=== PATIENT | female | born 1940 | race African-American/Black ===

== ENCOUNTER 2019-07-16 16:31 | Inpatient (IN) | payer MEDICARE, OTHER ==
[~2019-07-16] VITALS: Ht 149.9 cm; Wt 95.0 kg
[2019-07-16] MEDS ORDERED: SODIUM CHLORIDE 0.9% 1,000 ML IVB ONE (17:31)
[2019-07-16] MEDS ORDERED: SODIUM CHLORIDE 0.9% 250 ML IV ONE (17:45)
[2019-07-16] MEDS ORDERED: MORPHINE SULF INJ 2 MG/ML SYRINGE 1ML IV ONE (17:45)
[2019-07-16 18:05] LABS: Basophils # (auto) 0 10 ^3/uL (0-0.2); Basophils % (auto) 0.2 % (0.0-2.0); Eosinophils # (auto) 0 10 ^3/uL (0-0.8); Hematocrit 46.7 % (36.0-46.0); Hemoglobin 15.8 g/dL (12.2-16.2); Lymphocytes % (auto) 15.3 % (10.0-50.0); Mean Corpuscular Hemoglobin 32.4 pg (28.0-32.0); Mean Corpuscular Hgb Conc. 33.8 g/dL (32.0-36.0); Mean Corpuscular Volume 95.8 fL (80.0-100.0); Monocytes # (auto) 1.2 10 ^3/uL (0-1.3); Monocytes % (auto) 9.3 % (0.0-12.0); Neutrophils # (auto) 9.7 10 ^3/uL (1.6-8.6); Neutrophils % (auto) 75.2 % (37.0-80.0); Nucleated Red Blood Cells % 0.1 %; Platelet Count (auto) 346 10^3/uL (140-450); Red Blood Cells 4.87 10^6/uL (4.0-5.20); Red Cell Distribution Width 13.6 % (11.8-14.3)
[2019-07-16 18:17] LABS: Magnesium 2.8 mg/dL (1.6-2.6)
[2019-07-16 18:18] LABS: Albumin 4.4 g/dL (3.4-5.0); Anion Gap 10 (5-15); Blood Urea Nitrogen 60 mg/dL (7-18); Calcium 10.2 mg/dL (8.5-10.1); Carbon Dioxide 27 mmol/L (21-32); Chloride 99 mmol/L (98-107); Glucose 160 mg/dL (74-106); Potassium 4.6 mmol/L (3.5-5.1); Sodium 136 mmol/L (136-145)
[2019-07-16 18:24] LABS: Alanine Aminotransferase 20 U/L (13-56); Alkaline Phosphatase 110 U/L (45-117); Aspartate Aminotransferase 14 U/L (15-37); BUN/Creatinine Ratio 13.6; Bilirubin, Total 0.7 mg/dL (0.2-1.0); GFR African American 13 mL/min; GFR Non-African American 10 mL/min; Total Protein 9.3 g/dL (6.4-8.2)
[2019-07-16 18:32] LABS: Partial Thromboplastin Time 23.5 sec (23.64-32.05)
[2019-07-16] MEDS ORDERED: metroNIDAZOLE 500MG/100ML 100 ML IV ONE (18:45)
[2019-07-16] MEDS ORDERED: cefTRIAXone 1GM/50ML D5W 50 ML IV ONE (18:45)
[2019-07-16] MEDS ORDERED: ONDANSETRON HCL 4 MG/2 ML VIAL IV ONE (18:45)
[2019-07-16] MEDS ORDERED: LACTATED RINGER'S 2,000 ML IV ONE (19:15)
[2019-07-16] MEDS ORDERED: FUROSEMIDE 100 MG/10ML VIAL IV ONE (19:15)
[2019-07-16] MEDS ORDERED: NITROGLYCERIN 0.4 MG SL TAB SL PRN (19:30)
[2019-07-16] MEDS ORDERED: MORPHINE SULFATE 4 MG/ML SYR/VIAL IV PRN (19:30)
[2019-07-16] MEDS ORDERED: MORPHINE SULF INJ 2 MG/ML SYRINGE 1ML IV PRN (19:30)
[2019-07-16] MEDS ORDERED: DEXTROSE (50%) 50ML SYRG IV PRN (19:45)
[2019-07-16 20:59] LABS: Cholesterol 103 mg/dL (< 200); HDL Cholesterol 55 mg/dL (40-59); LDL Cholesterol 35 mg/dL (< 100); Triglycerides 191 mg/dL (< 150)
[2019-07-16] MEDS: LACTATED RINGER'S 1,000 ML IV SCH (21:36)
[2019-07-16 21:55] VITALS: BP 120/70
[2019-07-16 22:00] VITALS: BP 120/70
[2019-07-16] MEDS: InsuLIN REG 1unit/0.01ml Soln (100units/ml) SC SCH (22:00)
[2019-07-16] MEDS: ACCU-CHEK COMFORT CURVE STRIP VI SCH (22:00)
[2019-07-16] MEDS: metroNIDAZOLE 500MG/100ML 100 ML IV SCH (22:00)
[2019-07-17] VITALS (9 sets, daily range): BP systolic 101–132; BP diastolic 59–66
[2019-07-17 04:22] LABS: Basophils # (auto) 0 10 ^3/uL (0-0.2); Basophils % (auto) 0.3 % (0.0-2.0); Eosinophils # (auto) 0 10 ^3/uL (0-0.8); Eosinophils % (auto) 0.1 % (0.0-7.0); Hematocrit 39.6 % (36.0-46.0); Hemoglobin 13.4 g/dL (12.2-16.2); Lymphocytes % (auto) 19.9 % (10.0-50.0); Mean Corpuscular Hemoglobin 32.7 pg (28.0-32.0); Mean Corpuscular Hgb Conc. 33.8 g/dL (32.0-36.0); Mean Corpuscular Volume 96.6 fL (80.0-100.0); Monocytes # (auto) 1.4 10 ^3/uL (0-1.3); Monocytes % (auto) 13.4 % (0.0-12.0); Neutrophils # (auto) 6.7 10 ^3/uL (1.6-8.6); Neutrophils % (auto) 66.3 % (37.0-80.0); Platelet Count (auto) 255 10^3/uL (140-450); Red Cell Distribution Width 13.6 % (11.8-14.3); White Blood Cell 10.2 10^3/uL (4.4-10.8)
[2019-07-17 04:24] LABS: Albumin 3.3 g/dL (3.4-5.0); Calcium 8.3 mg/dL (8.5-10.1); Potassium 3.9 mmol/L (3.5-5.1)
[2019-07-17 04:30] LABS: BUN/Creatinine Ratio 16.6; Bilirubin, Total 0.5 mg/dL (0.2-1.0); Magnesium 2.5 mg/dL (1.6-2.6); Phosphorus 7.1 mg/dL (2.5-4.90); Total Protein 7.1 g/dL (6.4-8.2)
--- NOTE | 2019-07-17 05:08 | NUR ---
at 2250 pt was admitted from ER by Danelle ALMEIDAsurface water manager and transffered to icu bed and made comfortable.was sob
--- NOTE | 2019-07-17 05:10 | NUR ---
0000, pt was sleeping
--- NOTE | 2019-07-17 05:11 | NUR ---
0200 , repositioned and oral care done
--- NOTE | 2019-07-17 05:30 | NUR ---
0000 REPOSTIONED AND ORAL CARE DONE
--- NOTE | 2019-07-17 05:31 | NUR ---
AT 0200 PT IS ASLEEP
--- NOTE | 2019-07-17 05:32 | NUR ---
0400- IV INFUSING WELL AND iV SITE IS HENRY
[2019-07-17] MEDS: LACTATED RINGER'S 1,000 ML IV SCH ×2 (05:40→11:15)
[2019-07-17] MEDS: metroNIDAZOLE 500MG/100ML 100 ML IV SCH ×3 (05:41→22:31)
[2019-07-17] MEDS: hydrALAZINE HCL 20 MG/ML VL IV SCH ×4 (05:43→18:52)
[2019-07-17] MEDS ORDERED: FUROSEMIDE 100 MG/10ML VIAL IV SCH (06:00)
[2019-07-17] MEDS: InsuLIN REG 1unit/0.01ml Soln (100units/ml) SC SCH ×4 (06:26→22:31)
[2019-07-17] MEDS: ACCU-CHEK COMFORT CURVE STRIP VI SCH ×4 (06:27→22:31)
--- NOTE | 2019-07-17 07:50 | NUR ---
Opening Shift Note Assumed care of patient, awake and alert. No S/S of distress/SOB or pain. Instructed on POC and to call for assist PRN, will continue to monitor for changes Q1hr and PRN. Informed patient that still NPO, continuer IV, called For surgical consult. NG tube connected to suction, has bile content, patient no complaining of pain or N/V noted. Stated that hungry, had bowel sound.
[2019-07-17 08:42] LABS: Alcohol, Urine < 3.0 mg/dL (0-5); Amphetamine Screen, Urine NEGATIVE (NEGATIVE); Barbiturate Scree,Urine NEGATIVE (NEGATIVE); Benzodiazephine Screen, Urine NEGATIVE (NEGATIVE); Cannabinoid Screen, Urine NEGATIVE (NEGATIVE); Cocaine Screen, Urine NEGATIVE (NEGATIVE); Opiate Scree,Urine NEGATIVE (NEGATIVE); Phencyclidine Screen, Urine NEGATIVE (NEGATIVE)
[2019-07-17 08:43] LABS: Urine Bacteria FEW /hpf (None Seen); Urine Blood 2+ /uL (Negative); Urine Hyaline Cast MANY /lpf (0 - 2); Urine Mucus FEW (None Seen); Urine Specific Gravity 1.014 (1.001-1.035); Urine WBC 9 /hpf (0 - 5)
[2019-07-17] MEDS: cefTRIAXone 1GM/50ML D5W 50 ML IV SCH (09:22)
--- NOTE | 2019-07-17 09:32 | NUR ---
Received a call back from Dr. Aba MD will see patient later.
--- NOTE | 2019-07-17 11:30 | NUR ---
Mouth care provided. No complaining of N/V noted.
--- NOTE | 2019-07-17 13:10 | NUR ---
Dr. Rhodes at the bedside, seen and examined patient at this time. Plan of care discussed with patient, received new orders for Semiconductor Technician and hardware engineering manager consult, and transfer to ID. Patient made aware.
--- NOTE | 2019-07-17 13:52 | NUR ---
Gave a report to RN, patient transfer to 291B via the hospital bed, got NG content 450 ml with bile color out before transfer.
--- NOTE | 2019-07-17 13:57 | NUR ---
seen her at this time, received new orders, still pending for collect urine sample and received order for LIS, called west and left the note for RN who will taking care of her made aware.
--- NOTE | 2019-07-17 14:10 | NUR ---
Received a call back from Dr. Carmelo MD agreed to continue her eye drop.
--- NOTE | 2019-07-17 14:30 | NUR ---
Dr. Stephanie Fountain at bedside. Received new orders for an abdominal binder and LCS
--- NOTE | 2019-07-17 19:48 | NUR ---
RECEIVED PATIENT FROM DAY SHIFT RN. PATIENT RESTING IN BED. NO S/S OF DISTRESS NOTED. DENIED PAIN FOR NOW. NG TUBE TO LCS WITH YELLOW AND GREEN OUTPUT. ABD BINDER WITH ICE PACK IN PLACE. GUALLPA CATH IN PLACE DRAINING TO GRAVITY. POC INSTRUCTED AND ENCOURAGED PATIENT TO CALL FOR TOURISM RADIO PRESENTER IF NEEDED. BED IN LOWEST POSITION WITH SIDE RAILS UP X 2. CALL MG WITHIN REACH. ALARM ON. CONTINUE TO MONITOR FOR CHANGES Q1H AND PRN.
--- NOTE | 2019-07-17 21:43 | NUR ---
PATIENT'S SISTER CALLED, PASSWORD CONFIRMED. SISTER WOULD LIKE TO MAKE SURE PATIENT'S EYE DROPS, THERE ARE ORDERS OF EYE DROPS, WILL CARRY IT OUT LATER. SISTER VERBALIZED UNDERSTANDING. CONTINUE TO MONITOR.
[2019-07-17] MEDS: LATANOPROST 0.005 % OPTH(EYE) SOL 2.5ML EACHEYE SCH (22:30)
[2019-07-17] MEDS: BRIMONIDINE 0.2% OPTH Soln 5ml EACHEYE SCH (22:30)
[2019-07-17] MEDS: DORZOLAMIDE HCL 2% OPTH(EYE) SOL 10ML EACHEYE SCH (22:30)
--- NOTE | 2019-07-17 22:31 | NUR ---
ACCU-CHECK, BS 91. NO COVERAGE. CONTINUE TO MONITOR.
--- NOTE | 2019-07-18 01:30 | NUR ---
PATIENT SLEEPING. NO S/S OF DISTRESS NOTED. NG TUBE TO LCS, CONTINUE TO MONITOR.
[2019-07-18] MEDS: LACTATED RINGER'S 1,000 ML IV SCH ×4 (03:15→20:02)
[2019-07-18 05:00] VITALS: BP 123/57
[2019-07-18] MEDS: metroNIDAZOLE 500MG/100ML 100 ML IV SCH ×3 (06:06→23:09)
[2019-07-18] MEDS: hydrALAZINE HCL 20 MG/ML VL IV SCH ×4 (06:06→18:00)
[2019-07-18] MEDS: InsuLIN REG 1unit/0.01ml Soln (100units/ml) SC SCH ×4 (06:06→22:00)
[2019-07-18] MEDS: ACCU-CHEK COMFORT CURVE STRIP VI SCH ×4 (06:07→22:00)
--- NOTE | 2019-07-18 06:07 | NUR ---
ACCU-CHECK, BS 97. NO COVERAGE. CONTINUE TO MONITOR.
[2019-07-18] MEDS: cefTRIAXone 1GM/50ML D5W 50 ML IV SCH (09:27)
--- NOTE | 2019-07-18 09:54 | NUR ---
Received a call from Dr. Aba Brown with new orders as follow : patient need to be NPO and will get a surgery done today. Called OR spoke to Ale.
[2019-07-18 09:56] LABS: Anion Gap 8 (5-15); BUN/Creatinine Ratio 28.9; Blood Urea Nitrogen 70 mg/dL (7-18); Calcium 8.2 mg/dL (8.5-10.1); Carbon Dioxide 26 mmol/L (21-32); Chloride 110 mmol/L (98-107); GFR African American 25 mL/min; GFR Non-African American 21 mL/min; Glucose 103 mg/dL (74-106); Potassium 4.2 mmol/L (3.5-5.1); Sodium 144 mmol/L (136-145)
--- NOTE | 2019-07-18 11:25 | NUR ---
Informed patient's daughter(Lashonda) and patient's sister(Andrew) regarding patient is going to get a surgery today.
[2019-07-18] MEDS ORDERED: ceFAZolin 1GM/50ML 50 ML IV ONE (13:46)
[2019-07-18] MEDS ORDERED: fentaNYL CITRATE 5 ML ONE (15:02)
[2019-07-18] MEDS ORDERED: ROCURONIUM 10MG/ML 10ML VIAL IV ONE (15:02)
[2019-07-18] MEDS ORDERED: PROPOFOL 10 MG/ML 20 ML IV ONE (15:07)
[2019-07-18] MEDS ORDERED: SUCCINYLCHOLINE CHLORIDE 20 MG/ML 10ML VIAL IV ONE (15:07)
[2019-07-18] MEDS ORDERED: ceFAZolin 1GM VL ONE (16:25)
--- NOTE | 2019-07-18 17:20 | NUR ---
WOUND VAC CLARIFICATION ORDER FROM DR. LITTLEJOHN: Spoke with Dr. Littlejohn over the phone at extension [phone] for order for wound vac. Per Dr. Littlejohn apply wound vac to patient's abdominal wound today or tomorrow, Leave for three to four days, when patient is ready to go home, take it out and may go home without wound vac. No wound vac dressing change needed, no need for home wound vac.
[2019-07-18] MEDS ORDERED: ONDANSETRON HCL 4 MG/2 ML VIAL IV PRN (18:00)
[2019-07-18] MEDS ORDERED: ePHEDrine SULFATE 50 MG/ML AMP IV PRN (18:00)
[2019-07-18] MEDS ORDERED: hydrALAZINE HCL 20 MG/ML VL IV PRN (18:00)
[2019-07-18] MEDS ORDERED: MORPHINE SULFATE 4 MG/ML SYR/VIAL IV PRN (18:00)
--- NOTE | 2019-07-18 18:50 | NUR ---
Report given to Alexis ALMEIDA and hand all belongings in the room.
--- NOTE | 2019-07-18 19:30 | NUR ---
ANGELICA drain output: 25 mls of sanguinous drainage. Addendum: 07/29/19 at 0313 by SUZE BAUMAN RN Wrong date. Disregard
--- NOTE | 2019-07-18 19:55 | NUR ---
ARRIVED IN ROOM 294 AT 1920. WAS ALERT AND ORIENTED. DENIED PAIN. ABDOMINAL BINDER IN PLACE TO SUPPORT ABDOMINAL WOUND DRESSING AND MAKI DRAINAGE TUBE. AFEBRILE. VITAL SIGNS WITHIN NORMAL LIMIT.
--- NOTE | 2019-07-18 19:58 | NUR ---
ARRIVED ROOM 204 NOT 294.
[2019-07-18 20:00] VITALS: BP 120/61
[2019-07-18 20:57] VITALS: BP 120/91
[2019-07-18 22:00] VITALS: BP 138/66
[2019-07-18] MEDS: LATANOPROST 0.005 % OPTH(EYE) SOL 2.5ML EACHEYE SCH (22:00)
[2019-07-18] MEDS: BRIMONIDINE 0.2% OPTH Soln 5ml EACHEYE SCH (23:18)
[2019-07-18] MEDS: DORZOLAMIDE HCL 2% OPTH(EYE) SOL 10ML EACHEYE SCH (23:18)
[2019-07-19] MEDS: hydrALAZINE HCL 20 MG/ML VL IV SCH ×4 (00:04→16:58)
[2019-07-19] MEDS: ONDANSETRON HCL 4 MG/2 ML VIAL IV PRN (00:39)
[2019-07-19] MEDS: LACTATED RINGER'S 1,000 ML IV SCH ×2 (03:48→12:17)
[2019-07-19 05:00] VITALS: BP 125/59
[2019-07-19] MEDS: metroNIDAZOLE 500MG/100ML 100 ML IV SCH ×3 (05:44→22:14)
[2019-07-19 06:07] LABS: Basophils # (auto) 0 10 ^3/uL (0-0.2); Basophils % (auto) 0.3 % (0.0-2.0); Eosinophils # (auto) 0 10 ^3/uL (0-0.8); Eosinophils % (auto) 0.5 % (0.0-7.0); Hematocrit 25.6 % (36.0-46.0); Hemoglobin 8.4 g/dL (12.2-16.2); Lymphocytes # (auto) 0.6 10 ^3/uL (0.4-5.4); Lymphocytes % (auto) 12.6 % (10.0-50.0); Mean Corpuscular Hemoglobin 33.1 pg (28.0-32.0); Mean Corpuscular Volume 100.5 fL (80.0-100.0); Monocytes # (auto) 0.5 10 ^3/uL (0-1.3); Monocytes % (auto) 10.1 % (0.0-12.0); Neutrophils # (auto) 3.5 10 ^3/uL (1.6-8.6); Neutrophils % (auto) 76.5 % (37.0-80.0); Platelet Count (auto) 103 10^3/uL (140-450); Red Blood Cells 2.54 10^6/uL (4.0-5.20); Red Cell Distribution Width 13.5 % (11.8-14.3); White Blood Cell 4.6 10^3/uL (4.4-10.8)
--- NOTE | 2019-07-19 06:10 | NUR ---
Respiratory note: POX CHECK, PATIENT WAS NOT ON CPAP. PT WAS ASLEEP, NO RESP DISTRESS NOTED. HR 95, RR 16, 98% ON 2L N/C.
[2019-07-19 06:23] LABS: Calcium 7.5 mg/dL (8.5-10.1); Potassium 4.7 mmol/L (3.5-5.1)
[2019-07-19 06:25] LABS: BUN/Creatinine Ratio 37.2
[2019-07-19] MEDS: InsuLIN REG 1unit/0.01ml Soln (100units/ml) SC SCH ×3 (06:27→16:48)
[2019-07-19] MEDS: ACCU-CHEK COMFORT CURVE STRIP VI SCH ×3 (06:27→16:38)
--- NOTE | 2019-07-19 07:17 | NUR ---
0600 PATIENT GIVEN PARTIAL BEDBATH. TURNED AND REPOSITIONED. FEELS MORE CONFORTABLE.
--- NOTE | 2019-07-19 07:30 | NUR ---
Received patient with right antecubital area IV site leaking. Patient is hard stick.
--- NOTE | 2019-07-19 07:46 | NUR ---
80 MLS BLOODY EMPTIED FROM THE KRUNAL DRAINAGE SYSTEM.
--- NOTE | 2019-07-19 07:50 | NUR ---
Patient on NGT draining dark, brown liquid at 100 ml noted on the suction canister. NGT on low intermittent suction. Patient on NPO. On Torres catheter, draining light parul urine. One ANGELICA bulb drain on the right abdominal area. On abdominal binder.
--- NOTE | 2019-07-19 08:00 | NUR ---
SCD machine provided.
--- NOTE | 2019-07-19 08:10 | NUR ---
Charge Nurse Doc at bedside for IV insertion.
--- NOTE | 2019-07-19 08:15 | NUR ---
Charge Nurse Doc inserted an IV line on the right wrist, 22 gauge. Patient needs a midline.
--- NOTE | 2019-07-19 08:15 | NUR ---
Traci Franco at bedside.
--- NOTE | 2019-07-19 08:30 | NUR ---
Paged House Sup Cheryl.
--- NOTE | 2019-07-19 08:36 | NUR ---
Lenard Luna called back. Cheryl made aware patient needs a midline, patient is hard stick. Cheryl to page PICC Line Nurse.
[2019-07-19 09:00] VITALS: BP 134/60
[2019-07-19] MEDS: cefTRIAXone 1GM/50ML D5W 50 ML IV SCH (10:28)
--- NOTE | 2019-07-19 10:40 | NUR ---
electric melt operator Fany at bedside to place Wound Vac.
--- NOTE | 2019-07-19 10:48 | NUR ---
WOUND CARE NOTE: Wound care in to apply wound vac to patient's abdominal incision per Dr. Troncoso's order. Patient is 78 y/o female with admitting diagnosis of Sepsis, Strangulated Hernia with Necrosis of Bowel. Patient is resting bed in Rm. 204A. Patient is awake, alert and able to verbalize needs. She's medicated for pain by her bedside nurse prior wound vac application. Patient given education regarding NPWT, verbalized understanding. She's is able to assist in turning and repositioning and her Sincere score is 21. Removed patient's Rt abdominal wound dressing. Patient is one day s/p Ventral Hernia Repair by Dr. Troncoso. Patient's Rt abdominal incision measuring 18 cm is well approximated with intact rakesh. Wound is mild red, has pink surrounding skin, minimal serosanguineous drainage noted in ANGELICA drain. Cleansed patient's Rt abdominal incision with NS,patted dry with sterile gauze, applied skin protectant to periwound. Applied transparent drape to periwound. Applied one piece black granufoam dressing along incision. Secured foam dressing with transparent drape, attached trac pad and connected tubings. Run Ulta vac at 125 mmHg continuos as MD ordered. Good suction and seal noted, no leak detected. Photographs of patient's wound are taken for reference. Patient tolerated well. ELLE Hopson at bedside. RECOMMENDATIONS: Continuation of all wound care orders prescribed by MD, continue with skin/wound plan of care, continue monitoring by wound care while patient is hospitalized. Addendum: 07/19/19 at 1429 by Fany Mcconnell RN Amended: Links added.
--- NOTE | 2019-07-19 11:00 | NUR ---
Traci Franco made aware patient asked for stool softener. MD ordered to consult with Yannick Mayberry regarding stool softener. Patient had surgery yesterday. Informed the patient.
--- NOTE | 2019-07-19 12:30 | NUR ---
BP = 141/69, Heart rate = 97. Apresoline Inj 10 mg given as ordered.
[2019-07-19 13:00] VITALS: BP 141/69
--- NOTE | 2019-07-19 13:05 | NUR ---
Yannick Mayberry at bedside (for follow up post op). MD ordered Midline insertion, PPN as per Pharmacy at 75 ml/hr, D5 1/2 NS/KCL 20 Meq at 50 ml/hour; keep patient on NGT on low intermittent suction, keep NPO. Dr. Troncoso explained to patient no stool softener for now. PICC Line ELLE Gonsalez came over to insert midline today.
[2019-07-19] MEDS ORDERED: D5W/SOD CHL 0.45%/KCL 20MEQ 1,000 ML IV SCH (13:15)
[2019-07-19] MEDS ORDERED: PPN PER PHARMACY 0 ML IV SCH (13:15)
--- NOTE | 2019-07-19 13:40 | NUR ---
Pharmacist called that patient's K = 4.7. D5 1/2 NS KCL 20 Meq not recommended. Will inform .
--- NOTE | 2019-07-19 13:50 | NUR ---
Traci Huertas has seen the patient for GI Consult. No GI intervention recommended at this time.
--- NOTE | 2019-07-19 14:10 | NUR ---
MIDLINE placement Patient/Patient significant other educated on need for MIDLINE placement. All risks and benefits explained and all questions and concerns addressed prior to procedure. Noted past medical history and allergies with no contraindications. INR and Plt counts within acceptable range. 4 fr MIDLINE inserted via right basilic vein using [employer] US and Tip Location System. Sterile technique with maximum barrier precautions utilized. Blood return obtained from the single lumen and it flushed easily with NS using proper technique. MIDLINE secured with Stat-lock; biodisc and occlusive dressing applied. Less than 5ml EBL noted during procedure. MIDLINE 20cm internally w/ 0cm externally. *Baseline Arm Circumference 37cm at 1cm above insertion site. MIDLINE lot # [id number]. Note:
--- NOTE | 2019-07-19 14:17 | NUR ---
OK to use MIDLINE Thi Araya notified now OK to use MIDLINE.
[2019-07-19 14:22] LABS: Magnesium 1.7 mg/dL (1.6-2.6); Phosphorus 2.8 mg/dL (2.5-4.90); Pre Albumin 14.4 mg/dL (20.0-40.0)
--- NOTE | 2019-07-19 14:30 | NUR ---
About 75 ml of serosanguineous fluid drained from the ANGELICA bulb.
--- NOTE | 2019-07-19 14:40 | NUR ---
Called Yannick Mayberry Informed MD the K = 4.7, Pharmacist recommends the D5 with no Potassium. Dr. Troncoso ordered D5W 1/2 NS at 50 ml/hr.
[2019-07-19] MEDS: D5W/SOD CHL 0.45% 1,000 ML IV SCH (15:18)
[2019-07-19] MEDS ORDERED: MAGNESIUM SULFATE 1GM/100ML 100 ML IV ONE (15:45)
--- NOTE | 2019-07-19 16:58 | NUR ---
BP = 146/72. Apresoline Inj 10 mg given as ordered.
[2019-07-19 17:00] VITALS: BP 146/72
--- NOTE | 2019-07-19 19:40 | NUR ---
Opening Shift Note Assumed care of patient, awake and alert. Fall and safety precautions in place. Call light within reach and able to use. No S/S of distress/SOB or pain. Patient has surgical drain to right abdomen and NG tube to LIS. Instructed on POC and to call for assist PRN, patient verbalized understanding and in agreement. Will continue to monitor for changes Q1hr and PRN.
--- NOTE | 2019-07-19 19:54 | NUR ---
PAGED ON-CALL HOSP PAGED ON-CALL HOSP TO CLARIFY BLOOD SUGAR CHECK ORDERS FOR PATIENT STARTED ON PPN TODAY. ADDITIONALLY LATEST TEMPERATURE WAS 99.2 ORAL F. AWAITING CALL BACK. WILL CONTINUE TO MONITOR.
[2019-07-19] MEDS ORDERED: PPN PER PHARMACY IV NR ×5 (20:00)
[2019-07-19] MEDS ORDERED: ACETAMINOPHEN 650 MG RECT SUPP PR PRN (21:15)
[2019-07-19 21:50] VITALS: BP 150/63
[2019-07-19] MEDS: LATANOPROST 0.005 % OPTH(EYE) SOL 2.5ML EACHEYE SCH (22:00)
--- NOTE | 2019-07-19 22:10 | NUR ---
Respiratory note: PT STATED SHE WAS NOT GOING TO WEAR CPAP BECAUSE THE PRESSURE DIDN'T FEEL GOOD. NO SOB OR DISTRESS NOTED. HR 99, RR 16, POX 97% ON 3L NC, BS ARE CLEAR.
[2019-07-19] MEDS: DORZOLAMIDE HCL 2% OPTH(EYE) SOL 10ML EACHEYE SCH (22:14)
[2019-07-19] MEDS: BRIMONIDINE 0.2% OPTH Soln 5ml EACHEYE SCH (22:14)
[2019-07-20] MEDS ORDERED: DEXTROSE (50%) 50ML SYRG IV SCH
[2019-07-20] MEDS: hydrALAZINE HCL 20 MG/ML VL IV SCH ×4 (00:36→17:52)
[2019-07-20] MEDS: ACCU-CHEK COMFORT CURVE STRIP VI SCH ×4 (00:45→17:08)
[2019-07-20] MEDS: InsuLIN REG 1unit/0.01ml Soln (100units/ml) SC SCH ×4 (00:47→17:08)
[2019-07-20 05:00] VITALS: BP 129/58
[2019-07-20] MEDS: metroNIDAZOLE 500MG/100ML 100 ML IV SCH ×3 (05:47→21:09)
--- NOTE | 2019-07-20 06:16 | NUR ---
PT ASSESSED FOR CPAP USAGE. CPAP UNIT AT BEDSIDE. PT IS ON 3LNC, SPO2 98%, HR 97, RR 18.
[2019-07-20 06:34] LABS: Basophils # (auto) 0 10 ^3/uL (0-0.2); Basophils % (auto) 0.3 % (0.0-2.0); Eosinophils # (auto) 0.1 10 ^3/uL (0-0.8); Eosinophils % (auto) 1.8 % (0.0-7.0); Hematocrit 37.1 % (36.0-46.0); Hemoglobin 12.4 g/dL (12.2-16.2); Mean Corpuscular Hemoglobin 32.8 pg (28.0-32.0); Mean Corpuscular Hgb Conc. 33.5 g/dL (32.0-36.0); Monocytes # (auto) 0.8 10 ^3/uL (0-1.3); Monocytes % (auto) 10.3 % (0.0-12.0); Neutrophils # (auto) 5.8 10 ^3/uL (1.6-8.6); Neutrophils % (auto) 74.6 % (37.0-80.0); Nucleated Red Blood Cells % 0.1 %; Platelet Count (auto) 202 10^3/uL (140-450); Red Blood Cells 3.79 10^6/uL (4.0-5.20); Red Cell Distribution Width 13.7 % (11.8-14.3); White Blood Cell 7.8 10^3/uL (4.4-10.8)
[2019-07-20 06:53] LABS: Albumin 2.5 g/dL (3.4-5.0); Calcium 8.2 mg/dL (8.5-10.1); Magnesium 2.5 mg/dL (1.6-2.6); Potassium 4.2 mmol/L (3.5-5.1)
--- NOTE | 2019-07-20 06:54 | NUR ---
NG and Drain Output for LIS NG tube is 400ml clear dark green fluid for this shift. Output for Duarte surgical drain 100ml of sanguinous fluid for this shift. Patient resting in bed with no s/s of distress.
[2019-07-20 06:57] LABS: BUN/Creatinine Ratio 33.3; Bilirubin, Total 0.4 mg/dL (0.2-1.0); Phosphorus 1.4 mg/dL (2.5-4.90); Total Protein 6.1 g/dL (6.4-8.2)
--- NOTE | 2019-07-20 07:46 | NUR ---
PT ASSESSED FOR PRN HHN TX. PT IS ON 3LNC, SPO2 98%, HR 97, RR 18. NO S/S OF RESPIRATORY DISTRESS. PT AWARE TO HAVE RT PAGED IF TX NEEDED. WILL CONTINUE TO MONITOR. Addendum: 07/20/19 at 0747 by Erin Velasquez RT ERROR. WRONG PT.
--- NOTE | 2019-07-20 07:55 | NUR ---
Patient asleep, snoring, on O2 at 3 LPM, no acute distress noted. On NGT at low intermittent suction. About 600 ml of dark brown fluid noted in the suction canister.
--- NOTE | 2019-07-20 08:40 | NUR ---
Traci Franco at bedside. Dr. Rhodes ordered to ask when Yannick Mayberry comes, if patient needs to have Phosphorous IV.
--- NOTE | 2019-07-20 08:46 | NUR ---
WOUND CARE NOTE: Wound care in for daily monitoring of wound vac functioning. Patient continue resting in bed in Rm. 204A. Patient's eyes are closed, respirations even and unlabored. Patient's abdominal wound vac dressing is C/D/I and attached to Ulta Vac, functioning well at 125mm Hg continuous as MD ordered . Good seal noted, no leak detected. No drainage noted in Vacutainer. Will continue to monitor
[2019-07-20 09:00] VITALS: BP 116/65
[2019-07-20] MEDS: cefTRIAXone 1GM/50ML D5W 50 ML IV SCH (09:38)
[2019-07-20] MEDS: D5W/SOD CHL 0.45% 1,000 ML IV SCH (09:40)
[2019-07-20] MEDS ORDERED: POTASSIUM PHOSPHATE 22 MEQ in SODIUM CHL 0.9% 100 ML IV ONE (12:00)
--- NOTE | 2019-07-20 12:00 | NUR ---
Waiting for Pharmacy to deliver the Potassium Phosphate IV.
--- NOTE | 2019-07-20 12:17 | NUR ---
BP = 152/72. Apresoline Inj 10 mg given as ordered/
[2019-07-20 13:00] VITALS: BP 152/72
--- NOTE | 2019-07-20 14:10 | NUR ---
Nutrition Assessment Notes Please refer to link for full assessment notes. Est Energy needs: 5087-8749 kcals (12-15 kcal/kgBW) Est Protein needs: 58-69 gms/day (1.0-1.1 gm/kgAdjBW) Will continue to monitor and reassess prn. Addendum: 07/20/19 at [address] Amended: Links added.
--- NOTE | 2019-07-20 14:12 | NUR ---
Informed Pharmacy that Potassium Phosphate has not been received yet.
--- NOTE | 2019-07-20 17:08 | NUR ---
Yannick Mayberry called asking how the patient is doing. MD made aware patient on PPN via midline as he ordered. Dr. Troncoso ordered keep patient NPO, keep NGT on low intermittent suction. MD to come over to see the patient tomorrow.
[2019-07-20 17:15] VITALS: BP 141/68
--- NOTE | 2019-07-20 19:30 | NUR ---
Opening Shift Note Assumed care of patient, awake and alert. Fall and safety precautions in place. Call light within reach and able to use. No S/S of distress/SOB or pain. Wound vac to right abdomen continuous at ordered settings, sealed and intact, no drainage. Patient has surgical drain to right abdomen and NG tube to LIS with dark green fluid. PPN running at 42ml/hr via right upper arm midline. Instructed on POC and to call for assist PRN, patient verbalized understanding and in agreement. Will continue to monitor for changes Q1hr and PRN.
[2019-07-20] MEDS ORDERED: PPN PER PHARMACY IV NR ×7 (20:00)
--- NOTE | 2019-07-20 20:30 | NUR ---
New nutrition bag held with new tubing (see emar for documentation). Will continue to monitor.
[2019-07-20] MEDS: BRIMONIDINE 0.2% OPTH Soln 5ml EACHEYE SCH (21:08)
[2019-07-20] MEDS: DORZOLAMIDE HCL 2% OPTH(EYE) SOL 10ML EACHEYE SCH (21:08)
[2019-07-20] MEDS: LATANOPROST 0.005 % OPTH(EYE) SOL 2.5ML EACHEYE SCH (21:08)
[2019-07-20 22:00] VITALS: BP 157/65
[2019-07-20] MEDS: ONDANSETRON HCL 4 MG/2 ML VIAL IV PRN (22:12)
[2019-07-21] MEDS: ACCU-CHEK COMFORT CURVE STRIP VI SCH ×5 (00:15→23:20)
[2019-07-21] MEDS: hydrALAZINE HCL 20 MG/ML VL IV SCH ×5 (00:16→23:20)
[2019-07-21] MEDS: InsuLIN REG 1unit/0.01ml Soln (100units/ml) SC SCH ×5 (00:17→23:23)
--- NOTE | 2019-07-21 00:45 | NUR ---
NG Canister Changed Canister full with dark green fluid. Changed at this time and returned to prior settings: LIS. Will continue to monitor.
[2019-07-21] MEDS: ONDANSETRON HCL 4 MG/2 ML VIAL IV PRN (04:48)
[2019-07-21] MEDS: metroNIDAZOLE 500MG/100ML 100 ML IV SCH ×3 (05:10→21:29)
[2019-07-21] MEDS: D5W/SOD CHL 0.45% 1,000 ML IV SCH (05:51)
[2019-07-21 05:59] VITALS: BP 144/73
--- NOTE | 2019-07-21 06:29 | NUR ---
Total Shift Outputs Wound vac: 0ml NG LIS Canister: 600ml clear dark green fluid Duarte Surgical Drain: 110ml sanguinous fluid Will continue to monitor.
[2019-07-21 06:52] LABS: Potassium 3.9 mmol/L (3.5-5.1)
[2019-07-21 07:05] LABS: Albumin 2.5 g/dL (3.4-5.0); BUN/Creatinine Ratio 32.5; Bilirubin, Total 0.3 mg/dL (0.2-1.0); Magnesium 2.2 mg/dL (1.6-2.6); Phosphorus 1.5 mg/dL (2.5-4.90); Total Protein 6.3 g/dL (6.4-8.2)
--- NOTE | 2019-07-21 07:20 | NUR ---
OPENING NOTES ASSUMED CARE OF PT. ALERT AND ORIENTED. NO S/S OF SOB/DISTRESS NOTED. NGT TO RIGHT NARES, PATENT AND DRAINING DARK GREENISH BROWN COLOR TO LIS. BED SET TO LOWEST POSITION/LOCKED, BEDSIDE RAILS UP X2, BED ALARM ON, CALL LIGHT WITHIN REACH, INSTRUCTED PT TO CALL FOR ASSISTANCE. UPDATED ON POC. PT VERBALIZED UNDERSTANDING. WILL CONTINUE TO MONITOR Q1HR AND PRN.
--- NOTE | 2019-07-21 07:30 | NUR ---
DRAIN KRUNAL DRAIN 30ML OF SANGUINOUS FLUID.
--- NOTE | 2019-07-21 08:18 | NUR ---
WOUND CARE NOTE: Wound care in for daily monitoring of wound vac functioning. Patient continue resting in bed in Rm. 204A. Patient is awake, alert and oriented. Patient's abdominal wound vac dressing is C/D/I and attached to Ulta Vac, functioning well at 125mm Hg continuous as MD ordered . Good seal noted, no leak detected. Will continue to monitor
[2019-07-21 09:00] VITALS: BP 150/76
[2019-07-21] MEDS ORDERED: POTASSIUM PHOSPHATE 22 MEQ in SODIUM CHL 0.9% 100 ML IV ONE (09:45)
[2019-07-21] MEDS: cefTRIAXone 1GM/50ML D5W 50 ML IV SCH (10:29)
[2019-07-21] MEDS: D5W 5% 1,000 ML IV SCH (11:23)
[2019-07-21 13:00] VITALS: BP 164/86
[2019-07-21 17:00] VITALS: BP 160/78
--- NOTE | 2019-07-21 18:00 | NUR ---
NGT 1300ML OF GREENISH BROWN FLUID DRAINED.
--- NOTE | 2019-07-21 19:35 | NUR ---
Opening Shift Note Assumed care of patient, awake and alert. No S/S of distress/SOB or pain. Instructed on POC and to call for assist PRN, patient verbalized understanding and in agreement. Fall and safety precautions are in place. Will continue to monitor for changes Q1hr and PRN.
[2019-07-21] MEDS ORDERED: PPN PER PHARMACY IV NR ×8 (20:00)
[2019-07-21] MEDS: BRIMONIDINE 0.2% OPTH Soln 5ml EACHEYE SCH (21:28)
[2019-07-21] MEDS: DORZOLAMIDE HCL 2% OPTH(EYE) SOL 10ML EACHEYE SCH (21:28)
[2019-07-21] MEDS: LATANOPROST 0.005 % OPTH(EYE) SOL 2.5ML EACHEYE SCH (21:29)
--- NOTE | 2019-07-21 22:00 | NUR ---
Temp Patient's oral temp 99.3. Cooling measures initiated, patient verbalized understanding and in agreement. Will continue to monitor patient.
--- NOTE | 2019-07-21 22:00 | NUR ---
Eye drops not available In house pharmacy is closed. Will notify day shift RN of eye drops not available (see emar). Will continue to monitor.
[2019-07-21 22:08] VITALS: BP 144/84
--- NOTE | 2019-07-21 23:00 | NUR ---
Temp Recheck Patient's oral temp rechecked: 98.2 F. Will continue to monitor.
--- NOTE | 2019-07-21 23:00 | NUR ---
Bath / Linen Change Patient offered bed bath / linen change, patient verbalized understanding and in agreement. Patient given full bed bath and performed full linen change. Patient tolerated well. Will continue to monitor.
--- NOTE | 2019-07-22 | NUR ---
Patient c/o dry nose Patient states that her nose feels dry. Communicated with RT. Patient given humidification for oxygen. Will continue to monitor.
--- NOTE | 2019-07-22 00:40 | NUR ---
Nausea Patient states she feels nauseous. Patient's head of bed raised, LIS suction checked (clear green fluid draining well) from NG that if free of kinks, and towel/emesis bag provided. Patient offered PRN medication for N/V, patient in agreement for administration (see emar for administration). Will continue to monitor.
[2019-07-22] MEDS: ONDANSETRON HCL 4 MG/2 ML VIAL IV PRN ×2 (00:47→16:55)
--- NOTE | 2019-07-22 01:15 | NUR ---
Nausea Resolution Patient states she feels better and no longer is nauseated. Will continue to monitor.
[2019-07-22] MEDS ORDERED: FUROSEMIDE 20 MG/2 ML VIAL ONE (04:19)
--- NOTE | 2019-07-22 04:20 | NUR ---
Regarding Non-Admin STK Med Other RN pulled override med under wrong patient (see orders). Med was wasted by RN whom pulled med. Med was not given to this patient.
[2019-07-22] MEDS: metroNIDAZOLE 500MG/100ML 100 ML IV SCH ×3 (05:51→21:56)
[2019-07-22] MEDS: ACCU-CHEK COMFORT CURVE STRIP VI SCH ×4 (05:51→23:51)
[2019-07-22] MEDS: hydrALAZINE HCL 20 MG/ML VL IV SCH ×3 (05:51→17:43)
[2019-07-22] MEDS: D5W 5% 1,000 ML IV SCH (05:52)
[2019-07-22 05:54] LABS: Basophils # (auto) 0.1 10 ^3/uL (0-0.2); Basophils % (auto) 0.6 % (0.0-2.0); Eosinophils # (auto) 0.2 10 ^3/uL (0-0.8); Hematocrit 37.6 % (36.0-46.0); Hemoglobin 12.6 g/dL (12.2-16.2); Lymphocytes # (auto) 1.3 10 ^3/uL (0.4-5.4); Lymphocytes % (auto) 13.9 % (10.0-50.0); Mean Corpuscular Hemoglobin 32.8 pg (28.0-32.0); Mean Corpuscular Hgb Conc. 33.5 g/dL (32.0-36.0); Monocytes # (auto) 0.8 10 ^3/uL (0-1.3); Monocytes % (auto) 9.2 % (0.0-12.0); Neutrophils # (auto) 6.8 10 ^3/uL (1.6-8.6); Neutrophils % (auto) 74.3 % (37.0-80.0); Nucleated Red Blood Cells % 0.1 %; Platelet Count (auto) 202 10^3/uL (140-450); Red Blood Cells 3.84 10^6/uL (4.0-5.20); Red Cell Distribution Width 13.3 % (11.8-14.3); White Blood Cell 9.1 10^3/uL (4.4-10.8)
[2019-07-22] MEDS: InsuLIN REG 1unit/0.01ml Soln (100units/ml) SC SCH ×4 (05:54→23:52)
[2019-07-22 06:11] LABS: Potassium 3.8 mmol/L (3.5-5.1)
[2019-07-22 06:19] LABS: Albumin 2.6 g/dL (3.4-5.0); BUN/Creatinine Ratio 31.5; Bilirubin, Total 0.3 mg/dL (0.2-1.0); Calcium 8.3 mg/dL (8.5-10.1); Magnesium 2.3 mg/dL (1.6-2.6); Phosphorus 2.8 mg/dL (2.5-4.90); Total Protein 6.4 g/dL (6.4-8.2)
--- NOTE | 2019-07-22 07:20 | NUR ---
OPENING NOTES ASSUMED CARE OF PT. ALERT AND ORIENTED. NO S/S OF SOB/DISTRESS NOTED. NGT TO LEFT NARES, PATENT AND DRAINING DARK GREENISH BROWN COLOR TO LIS. BED SET TO LOWEST POSITION/LOCKED, BEDSIDE RAILS UP X2, BED ALARM ON, CALL LIGHT WITHIN REACH, INSTRUCTED PT TO CALL FOR ASSISTANCE. UPDATED ON POC. PT VERBALIZED UNDERSTANDING. WILL CONTINUE TO MONITOR Q1HR AND PRN.
[2019-07-22 09:00] VITALS: BP 151/64
[2019-07-22] MEDS: cefTRIAXone 1GM/50ML D5W 50 ML IV SCH (09:40)
--- NOTE | 2019-07-22 09:55 | NUR ---
WOUND CARE NOTE: IN TO CHECK STATUS OF WOUND VAC DRESSING TO ABD INCISION. PATIENT'S VAC IS SET AT 125 MM/HG CONTINUOUS. GOOD SUCTION, NO LEAKS DETECTED. WOUND CARE TEAM WILL CONTINUE TO MONITOR.
[2019-07-22 13:00] VITALS: BP 138/77
--- NOTE | 2019-07-22 14:53 | NUR ---
Nutrition Follow-up Wt.: 96.7 kg Pt sleeping with no family by bedside. per records pt with hernia and s/p sx on 07/17. pt is currently NPO with PN support @ 63 ml/hr providing 956 kcals and 70 gm proteins 676 kcals NCP. pt with inadequate PN support as it meets 65-82% IBW and 100-120% proteins. Est Energy needs: 6553-1251 kcals (12-15 kcal/kgBW), Est Protein needs: 58-69 gms/day (1.0-1.1 gm/kgAdjBW) Labs: CA 8.3 L, ALB 2.6 L, GLU 188 H, BUN 35 H, CREAT 1.11 H GI: Pt has no BM reported and 1600 ml gastric drainage per RN doc Skin: Sincere scale 17, mod risk incision at site of sx per RN doc PES: 1) Obesity r/t energy intake in excess of energy needs aeb 217% IBW and BMI of 43.0 kg/m Altered nutrition related lab values r/t current chronic medical condition aeb hyperglycemia, elev RFTs, low GFR, hypoproteinemia, hypoalbuminemia Recommendations: 1) Advance PN support to meet >75% of needs. 2) Gradually advance pt to oral CCHO 60g/Renal Specific diet when medically feasible and as tolerated. 3) Continue current plan of care
--- NOTE | 2019-07-22 15:06 | NUR ---
assessment Patient is a 78 year old female who is alert and oriented. Prior to admission patient lived home with her sister and functioned independently. Patient informed me she is able to care for her own ADLs. Per patient she will return home to her prior living arrangements post discharge and family will transport her home. Patient has a fww for home use. Patient called 911 due to abdominal pain and was admitted. Patient may need home health for IV ABX on discharge for Sepsis. I informed patient she has a right to speak to a marriage and family social worker regarding all care. I informed patient she has a right to participate in any and all discharge planning. Patient does not have a POA and advanced directive. I have offered patient information on POA and advanced directives. I informed the patient the advantages and benefits of having an Advanced Directive. Patient verbalized understanding and agreed to discharge plan. Addendum: 07/22/19 at 1508 by Ingrid CARR Amended: Links added.
[2019-07-22 17:00] VITALS: BP 144/70
--- NOTE | 2019-07-22 18:15 | NUR ---
NGT 1200ML OF GREENISH BROWN FLUID DRAINED.
--- NOTE | 2019-07-22 18:30 | NUR ---
DRAIN KRUNAL DRAIN 40ML OF SANGUINOUS FLUID.
[2019-07-22] MEDS: PPN PER PHARMACY IV NR ×9 (20:33)
[2019-07-22] MEDS: DORZOLAMIDE HCL 2% OPTH(EYE) SOL 10ML EACHEYE SCH (21:57)
[2019-07-22 22:00] VITALS: BP 127/73
[2019-07-22] MEDS: BRIMONIDINE 0.2% OPTH Soln 5ml EACHEYE SCH (22:15)
[2019-07-22] MEDS: LATANOPROST 0.005 % OPTH(EYE) SOL 2.5ML EACHEYE SCH (23:22)
[2019-07-23] MEDS: hydrALAZINE HCL 20 MG/ML VL IV SCH ×4 (00:01→18:05)
[2019-07-23] MEDS: D5W 5% 1,000 ML IV SCH (01:54)
--- NOTE | 2019-07-23 02:19 | NUR ---
NGT 1150ML OF GREENISH BROWN FLUID DRAINED.
--- NOTE | 2019-07-23 03:15 | NUR ---
ASSUMED CARE OF PATIENT PATIENT RESTING WITH EYES CLOSED, NO S/S OF DISTRESS OR SOB. BED LOCKED IN LOWEST POSITION, SIDE RAILS UP X2, CALL LIGHT WITHIN REACH. WILL CONTINUE TO MONITOR Q1HR AND PRN.
--- NOTE | 2019-07-23 04:20 | NUR ---
NGT 900ML OF GREENISH BROWN FLUID DRAINED.
[2019-07-23 05:00] VITALS: BP 115/76
[2019-07-23 05:44] LABS: Basophils # (auto) 0.1 10 ^3/uL (0-0.2); Basophils % (auto) 0.6 % (0.0-2.0); Eosinophils # (auto) 0.1 10 ^3/uL (0-0.8); Eosinophils % (auto) 1.2 % (0.0-7.0); Hematocrit 40.5 % (36.0-46.0); Hemoglobin 13.4 g/dL (12.2-16.2); Lymphocytes # (auto) 1.6 10 ^3/uL (0.4-5.4); Lymphocytes % (auto) 14.4 % (10.0-50.0); Mean Corpuscular Hemoglobin 32.6 pg (28.0-32.0); Mean Corpuscular Hgb Conc. 33.2 g/dL (32.0-36.0); Mean Corpuscular Volume 98.2 fL (80.0-100.0); Monocytes % (auto) 9.4 % (0.0-12.0); Neutrophils # (auto) 8.2 10 ^3/uL (1.6-8.6); Neutrophils % (auto) 74.4 % (37.0-80.0); Platelet Count (auto) 217 10^3/uL (140-450); Red Blood Cells 4.12 10^6/uL (4.0-5.20); Red Cell Distribution Width 13.3 % (11.8-14.3)
[2019-07-23 06:05] LABS: Albumin 2.8 g/dL (3.4-5.0); Calcium 8.7 mg/dL (8.5-10.1); Potassium 3.6 mmol/L (3.5-5.1)
[2019-07-23 06:11] LABS: BUN/Creatinine Ratio 39.8; Bilirubin, Total 0.4 mg/dL (0.2-1.0); Magnesium 2.3 mg/dL (1.6-2.6); Phosphorus 3.5 mg/dL (2.5-4.90); Total Protein 6.8 g/dL (6.4-8.2)
[2019-07-23] MEDS: metroNIDAZOLE 500MG/100ML 100 ML IV SCH (06:21)
[2019-07-23] MEDS: ACCU-CHEK COMFORT CURVE STRIP VI SCH ×3 (06:22→18:05)
[2019-07-23] MEDS: InsuLIN REG 1unit/0.01ml Soln (100units/ml) SC SCH ×3 (06:28→18:06)
[2019-07-23 09:00] VITALS: BP 125/70
[2019-07-23] MEDS: cefTRIAXone 1GM/50ML D5W 50 ML IV SCH (09:45)
--- NOTE | 2019-07-23 10:00 | NUR ---
WOUND CARE NOTE: IN TO ASSESS FUNCTION OF WOUND VAC DRESSING TO ABDOMINAL INCISION AT THIS TIME. VAC IS SET TO 125 MM/HG CONTINUOUS. GOOD SUCTION, NO LEAKS DETECTED. WOUND CARE TEAM WILL CONTINUE TO MONITOR.
[2019-07-23] MEDS: ONDANSETRON HCL 4 MG/2 ML VIAL IV PRN ×2 (10:09→19:58)
[2019-07-23 11:02] LABS: INR 0.97 (0.9-1.15); Partial Thromboplastin Time 24.3 sec (23.64-32.05)
--- NOTE | 2019-07-23 11:52 | NUR ---
PAGED DR Stephanie LITTLEJOHN REGARDING KUB RESULTS. AWAITING CALL BACK.
[2019-07-23 13:00] VITALS: BP 145/77
--- NOTE | 2019-07-23 13:00 | NUR ---
NGT 800ML OF GREENISH BROWN FLUID DRAINED.
--- NOTE | 2019-07-23 14:05 | NUR ---
SPOKE WITH Stephanie LITTLEJOHN MADE AWARE OF KUB RESULTS AND AMOUNT OF NG OUTPUT FOR THIS SHIFT. RECEIVED ORDERS, WILL INPUT AND FOLLOW THROUGH.
--- NOTE | 2019-07-23 16:40 | NUR ---
DR Stephanie LITTLEJOHN AT BEDSIDE PER MD CLAMP NG TUBE FOR 4 HOURS TO OBSERVE HOW PATIENT TOLERATES. IF PATIENT EXPERIENCES ANY N/V RESUME CONTINUOUS SUCTION. ORDERS TO DC GUALLPA AND AMBULATE PATIENT TO CHAIR. WILL FOLLOW THROUGH.
--- NOTE | 2019-07-23 16:45 | NUR ---
NG TUBE CLAMPED PATIENT ADVISED TO USE CALL LIGHT IF SHE EXPERIENCES ANY NAUSEA. IF PATIENT TOLERATES, WILL ADVISE SENIOR CLINICAL RESEARCH ASSOCIATE RN TO PLACE PATIENT BACK ON SUCTION AT 2044, PER MD ORDERS.
--- NOTE | 2019-07-23 16:46 | NUR ---
NGT 400ML OF GREENISH BROWN FLUID DRAINED.
[2019-07-23 16:59] VITALS: BP 123/69
--- NOTE | 2019-07-23 18:07 | NUR ---
DRAIN KRUNAL DRAIN 50ML OF SANGUINOUS FLUID.
--- NOTE | 2019-07-23 19:00 | NUR ---
Opening Shift Note Assumed care of patient, awake and alert. No S/S of distress/SOB or pain. Instructed on POC and to call for assist PRN. Bed in lowest position, call light in reach, bed wheels locked. will continue to monitor for changes Q1hr and PRN.
[2019-07-23] MEDS: PPN PER PHARMACY IV NR ×17 (19:58→20:15)
--- NOTE | 2019-07-23 20:00 | NUR ---
Nausea/Vomiting Patient c/o nausea and vomiting. Zofran given per MD order, see MAR. Minimal emesis noted. pt no s/s of distress noted. Will continue to monitor.
--- NOTE | 2019-07-23 20:45 | NUR ---
NGT NGT hooked back up to suction. Pt no s/s of distress noted. No c/o nausea and vomiting. Will continue to monitor.
[2019-07-23 21:59] VITALS: BP 140/69
[2019-07-23] MEDS: BRIMONIDINE 0.2% OPTH Soln 5ml EACHEYE SCH (22:56)
[2019-07-23] MEDS: LATANOPROST 0.005 % OPTH(EYE) SOL 2.5ML EACHEYE SCH (22:56)
[2019-07-23] MEDS: DORZOLAMIDE HCL 2% OPTH(EYE) SOL 10ML EACHEYE SCH (22:56)
[2019-07-24] MEDS: ACCU-CHEK COMFORT CURVE STRIP VI SCH ×4 (00:11→17:57)
[2019-07-24] MEDS: InsuLIN REG 1unit/0.01ml Soln (100units/ml) SC SCH ×4 (00:20→17:57)
[2019-07-24] MEDS: hydrALAZINE HCL 20 MG/ML VL IV SCH ×4 (00:21→17:56)
[2019-07-24 05:22] VITALS: BP 137/71
[2019-07-24 05:43] LABS: Potassium 3.7 mmol/L (3.5-5.1)
[2019-07-24 05:53] LABS: Albumin 2.9 g/dL (3.4-5.0); BUN/Creatinine Ratio 45.6; Bilirubin, Total 0.5 mg/dL (0.2-1.0); Calcium 8.8 mg/dL (8.5-10.1); Magnesium 2.5 mg/dL (1.6-2.6); Phosphorus 3.5 mg/dL (2.5-4.90); Pre Albumin 31.2 mg/dL (20.0-40.0); Total Protein 7.3 g/dL (6.4-8.2)
[2019-07-24] MEDS: D5W 5% 1,000 ML IV SCH (06:05)
--- NOTE | 2019-07-24 06:25 | NUR ---
NGT AND ANGELICA DRAIN 700 ML EMPTIED FROM NGT CANISTER. 25 ML SANGUINOUS DRAINAGE REMOVED FROM ANGELICA DRAIN. PT TOLERATING WELL.
--- NOTE | 2019-07-24 07:30 | NUR ---
Opening Shift Note Assumed care of patient, awake and alert. No S/S of distress/SOB or pain on 2 LPM via nasal cannula. NGT to left nare to continuous suctioning per MD order. Instructed on POC and to call for assist PRN, will continue to monitor for changes Q1hr and PRN. Bed in low and locked position, rails up x2, no-slip socks on.
[2019-07-24 08:43] VITALS: BP 116/61
[2019-07-24] MEDS: cefTRIAXone 1GM/50ML D5W 50 ML IV SCH (09:02)
[2019-07-24] MEDS: SODIUM CHLORIDE 0.9% 1,000 ML IV SCH ×2 (09:09→22:17)
--- NOTE | 2019-07-24 09:26 | NUR ---
IV insertion/IV removal IV access obtained, via clean sterile technique by inserting 22 gauge catheter at RIGHT FOREARM after 1 attempt. IV secured properly. No trauma to site. Patient tolerated well. IV DC'd to right hand after inability to flush with clean sterile technique, catheter fully intact. Pressure dressing applied to site. Patient tolerated well.
--- NOTE | 2019-07-24 11:05 | NUR ---
CALL TO [facility] SPOKE TO TOM IN PHARMACY TO CONFIRM THAT PATIENT SHOULD STILL BE D/C'D FROM [facility], INFORMED ON PATIENTS COMPLICATED NATURE OF ABDOMINAL SURGERY, PHARMACIST STATED THAT PATIENT HAS HAD 7 DAY TREATMENT WITH [facility] AND THAT UNLESS SIGNS AND SYMPTOMS OF INFECTION ARISE, IT IS NOT INDICATED TO CONTINUE. NOTIFIED
--- NOTE | 2019-07-24 12:29 | NUR ---
Nutrition Follow-up Wt.: 92.1 kg Pt sleeping with no family by bedside. per records pt with hernia and s/p sx on 07/17. pt is currently NPO with PN support @ 65 ml/hr providing 956 kcals and 70 gm proteins 676 kcals NCP. pt with inadequate PN support as it meets 65-82% IBW and 100-120% proteins. Est Energy needs: 2967-7220 kcals (12-15 kcal/kgBW), Est Protein needs: 58-69 gms/day (1.0-1.1 gm/kgAdjBW) Labs: BUN 72 H, CREAT 1.58 H, GLU 174 H, ALB 2.9 L. GI: Pt has no BM reported and 700 ml gastric drainage per RN doc Skin: Sincere scale 15 mod risk incision at site of sx per RN doc PES: 1) Obesity r/t energy intake in excess of energy needs aeb 217% IBW and BMI of 43.0 kg/m Altered nutrition related lab values r/t current chronic medical condition aeb hyperglycemia, elev RFTs, low GFR, hypoproteinemia, hypoalbuminemia Recommendations: 1) Advance PN support to meet >75% of needs. 2) Gradually advance pt to oral CCHO 60g/Renal Specific 60 gm protein diet when medically feasible and as tolerated. 3) Continue current plan of care
[2019-07-24 13:03] VITALS: BP 112/74
[2019-07-24 16:47] VITALS: BP 128/67
--- NOTE | 2019-07-24 17:30 | NUR ---
DR Stephanie LITTLEJOHN AT BEDSIDE CLAMP PATIENT NGT FOR 4 HOURS AND ASSESS FOR NAUSEA AND VOMITING, PATIENT INSTRUCTED TO NOTIFY RN OF NAUSEA, CAN RESTART SUCTIONING IF PATIENT UNABLE TO TOLERATE, IF PATIENT CAN TOLERATE, LEAVE UNCLAMPED FOR AN ADDITIONAL 4 HOURS.
--- NOTE | 2019-07-24 19:13 | NUR ---
OPENING SHIFT NOTE: ASSUMED CARE OF PATIENT. PATIENT IS AWAKE, ALERT AND ORIENTED X 4. NO S/S OF DISTRESS OR SOB NOTED. BED IS LOW, LOCKED, TWO SIDE RAILS RAISED, AND CALL MG WITHIN REACH. INSTRUCTED ON POC AND ENCOURAGED TO CALL FOR ASSISTANCE, PATIENT VERBALIZES UNDERSTANDING. WILL CONTINUE TO MONITOR Q1 HR AND PRN.
[2019-07-24] MEDS: PPN PER PHARMACY IV NR ×15 (19:49→20:28)
[2019-07-24 20:00] VITALS: BP 144/70
--- NOTE | 2019-07-24 21:30 | NUR ---
NGT re-connected to suction. pt no S/S of distress noted. No C/O nausea or vomiting. Will continue to monitor
[2019-07-24 22:00] VITALS: BP 144/70
[2019-07-24] MEDS: LATANOPROST 0.005 % OPTH(EYE) SOL 2.5ML EACHEYE SCH (22:23)
[2019-07-24] MEDS: BRIMONIDINE 0.2% OPTH Soln 5ml EACHEYE SCH (22:23)
[2019-07-24] MEDS: DORZOLAMIDE HCL 2% OPTH(EYE) SOL 10ML EACHEYE SCH (22:23)
[2019-07-25] MEDS: hydrALAZINE HCL 20 MG/ML VL IV SCH ×4 (00:20→17:40)
[2019-07-25] MEDS: ACCU-CHEK COMFORT CURVE STRIP VI SCH ×4 (00:27→17:46)
[2019-07-25] MEDS: InsuLIN REG 1unit/0.01ml Soln (100units/ml) SC SCH ×4 (00:31→17:45)
--- NOTE | 2019-07-25 02:00 | NUR ---
NGT: 750 ML EMPTIED FROM NGT CANISTER. PT TOLERATING WELL, NEW CANISTER ATTACHED, WILL CONTINUE TO MONITOR.
[2019-07-25 05:27] VITALS: BP 129/74
[2019-07-25 05:30] LABS: Albumin 2.9 g/dL (3.4-5.0); Calcium 8.7 mg/dL (8.5-10.1); Magnesium 2.6 mg/dL (1.6-2.6); Potassium 3.7 mmol/L (3.5-5.1)
[2019-07-25 05:34] LABS: BUN/Creatinine Ratio 58.3; Bilirubin, Total 0.5 mg/dL (0.2-1.0); Phosphorus 3.2 mg/dL (2.5-4.90); Total Protein 7.4 g/dL (6.4-8.2)
--- NOTE | 2019-07-25 05:45 | NUR ---
CRITICAL LAB: RECEIVED CALL FROM KAREN IN LAB, BUN IS 88. HOSPITALIST PAGED, AWAITING CALL BACK.
--- NOTE | 2019-07-25 05:48 | NUR ---
returned call: HOSPITALIST MD KING returned call, updated on patient status and reason for call, orders received to increase current IV fluids from 75 ml/hr to 150 ml/hr. Will continue care.
[2019-07-25] MEDS: SODIUM CHLORIDE 0.9% 1,000 ML IV SCH ×3 (06:45→20:39)
--- NOTE | 2019-07-25 06:50 | NUR ---
NGT AND ANGELICA DRAIN: CURRENT NGT DRAINAGE IS AT 200. 15 ML EMPTIED FROM ANGELICA DRAIN. PATIENT TOLERATED WELL. WILL ENDORSE TO TOMAS ALMEIDA.
--- NOTE | 2019-07-25 07:05 | NUR ---
OPENING SHIFT NOTE ASSUMED CARE OF PATIENT FROM YELLOW PAGES SPACE SALESPERSON RN INDIRA. PATIENT IS AWAKE, ALERT, ORIENTED X3. PATIENT HAS NO S/S OF DISTRESS/SOB OR PAIN. INSTRUCTED PATIENT ON POC, PATIENT VERBALIZED UNDERSTANDING. BED IS IN LOWEST POSITION WITH SIDE RAILS RAISED X2, BED WHEELS LOCKED, NG DRAINING GREEN FLUID TO LOW CONTINUOS SUCTION, AND CALL LIGHT IS WITHIN REACH. WILL CONTINUE TO MONITOR.
[2019-07-25 08:15] VITALS: BP 125/71
[2019-07-25 08:58] VITALS: BP 125/71
[2019-07-25] MEDS: cefTRIAXone 1GM/50ML D5W 50 ML IV SCH (09:28)
--- NOTE | 2019-07-25 10:15 | NUR ---
MD MORALES AT BEDSIDE. UPDATED MD ON PATIENT'S STATUS INCLUDING HEART RATE OF 130 BPM. MD IS AWARE AND ORDERED LOPRESSOR TO BE GIVEN. WILL FOLLOW THROUGH WITH ORDERS.
--- NOTE | 2019-07-25 11:00 | NUR ---
WOUND CARE NOTE: Wound care in for daily monitoring of wound vac functioning. Patient continue resting in bed in Rm. 204A. Patient is awake, alert and oriented. Patient's abdominal wound vac dressing is C/D/I and attached to Ulta Vac, functioning well at 125mm Hg continuous as MD ordered . Good seal noted, no leak detected. No drainage noted in Vacutainer. Will continue to monitor
[2019-07-25] MEDS ORDERED: METOPROLOL TARTRATE 1MG/1ML-5ML VIAL IV ONE (11:15)
[2019-07-25 12:45] VITALS: BP 141/83
--- NOTE | 2019-07-25 13:30 | NUR ---
RECEIVED CALL FROM DR. LITTLEJOHN UPDATED MD ON PATIENT'S STATUS INCLUDING NGT DRAINAGE OF 1,000 ML OF GREEN FLUID. MD IS AWARE AND WANTS NGT CLAMPED AND TO GIVE REGLAN PER HOSPITALIST. SPOKE WITH MD MORALES AND ORDERED 10 MG IV TO BE GIVEN, MD IS AWARE OF BUN AND CREATININE LEVELS. WILL FOLLOW THROUGH WITH ORDERS.
[2019-07-25] MEDS ORDERED: METOCLOPRAMIDE HCL 5MG/ml INJ 2ml VIAL IV PRN (13:45)
--- NOTE | 2019-07-25 16:35 | NUR ---
MD LITTLEJOHN AT BEDSIDE UPDATED MD ON PATIENT'S STATUS. MD IS AWARE AND ORDERED SMALL BOWEL SERIES. CALLED RADIOLOGY AND THEY WILL DO SMALL BOWEL SERIES AT 1745.
[2019-07-25] MEDS ORDERED: GASTROGRAFIN 120 ML SOL ONE (16:48)
[2019-07-25 16:57] VITALS: BP 131/65
--- NOTE | 2019-07-25 18:14 | NUR ---
PER RADIOLOGY NGT NEEDS TO CLAMPED ALL NIGHT. WILL INFORM COPS.
--- NOTE | 2019-07-25 19:05 | NUR ---
Received report from the Day Shift ELLE Schroeder. Initial assessment done.
--- NOTE | 2019-07-25 19:20 | NUR ---
CLOSING SHIFT NOTE ENDORSED CARE TO SERVICE DESK ASSOCIATE ELLE LANG. PATIENT HAS NO S/S OF DISTRESS/SOB OR PAIN. INFORMED RN PATIENT'S NGT NEEDS TO STAY CLAMPED THROUGH OUT THE NIGHT FOR SMALL BOWEL SERIES. Addendum: 07/25/19 at 1921 by Elda Bravo RN RN ELLE LANG
--- NOTE | 2019-07-25 19:36 | NUR ---
Pt. is Sinus Tachycardia @ 111 @ the Tele # 29. Pt. denies chest pain when assessed.
[2019-07-25] MEDS: PPN PER PHARMACY IV NR ×7 (19:52)
[2019-07-25] MEDS ORDERED: PPN PER PHARMACY IV NR ×9 (20:00)
--- NOTE | 2019-07-25 20:00 | NUR ---
Assessment done and completed. Pt. scooted HOB up and turned to the sides and keep comfortable and testing lead bed. NG tube @ the Left Nare clamp and not to unclamp it. Pt. with wound vac @ 125 mmHg. continuous, ANGELICA @ the right side of the abdomen with min. serosanguineous/bloody fluid @ this time. Pt. is kept on NPO and is on PPN continuous and is connected to the CHANTE Midline. No P @ the Left arm due to history of left breast surgery in the past. Pt. on bedrest and on total or max. assist. by 2 two persons.
--- NOTE | 2019-07-25 20:38 | NUR ---
PPN bag followed up or changed to a new bag as ordered by the Doctor, with new primary tubing and new filter tubing attached. PPN checked and verified by 2 RN's signature @ the Emar before administration. PPN rate @ 72 ml./hr. as Per Pharm Protocol as ordered by the Doctor attached/connected to the CHANTE Midline.
[2019-07-25] MEDS: DORZOLAMIDE HCL 2% OPTH(EYE) SOL 10ML EACHEYE SCH (21:12)
[2019-07-25] MEDS: BRIMONIDINE 0.2% OPTH Soln 5ml EACHEYE SCH (21:12)
[2019-07-25] MEDS: LATANOPROST 0.005 % OPTH(EYE) SOL 2.5ML EACHEYE SCH (21:12)
--- NOTE | 2019-07-25 21:12 | NUR ---
Eye drop meds. started to give @ this time. Each eye meds. is given 15-30 mins. apart but all were signed @ the Emar @ 2111 Pm.
--- NOTE | 2019-07-25 21:30 | NUR ---
Pt. given complete bedbath after soiling. Pt. is cleansed/washed and changed all bed linens including chux. Keep pt. clean, dry and painting machine operator bed. Left nare NGT is kept clamped.
[2019-07-25 22:38] VITALS: BP 122/67
[2019-07-26] MEDS: ACCU-CHEK COMFORT CURVE STRIP VI SCH ×4 (00:32→18:59)
--- NOTE | 2019-07-26 00:32 | NUR ---
Accucheck taken with result of 177 @ 0032 MN. Pt. is on PPN @ 72 ml./hr. continuous.
[2019-07-26] MEDS: hydrALAZINE HCL 20 MG/ML VL IV SCH ×4 (00:36→18:59)
[2019-07-26] MEDS: InsuLIN REG 1unit/0.01ml Soln (100units/ml) SC SCH ×4 (00:41→19:08)
--- NOTE | 2019-07-26 00:41 | NUR ---
Pt. is given 4 units of Regular Human Insulin SQ @ the Left side of the abdomen for BS = 177. Pt. made aware of the blood sugar result and the s/s coverage of the Insulin given. See Emar. Pt. verbalized understanding.
--- NOTE | 2019-07-26 03:00 | NUR ---
Pt. given complete bedbath and cleansed and washed all body soiling liquid diarhheic stool in large amount. All bed linens changed. Scooted HOB up @ 35-45 degrees angle, turned to the sides with pillows supporting back areas and keep pt. safe and firestopper installer bed.
--- NOTE | 2019-07-26 04:00 | NUR ---
Pt. quiet and sleeping @ this time. Kept warm with call-light within reach @ the bedside.
[2019-07-26 05:02] VITALS: BP 129/70
[2019-07-26 07:00] LABS: Potassium 3.9 mmol/L (3.5-5.1)
[2019-07-26 07:08] LABS: Albumin 2.9 g/dL (3.4-5.0); BUN/Creatinine Ratio 69.6; Bilirubin, Total 0.4 mg/dL (0.2-1.0); Calcium 8.8 mg/dL (8.5-10.1); Magnesium 2.8 mg/dL (1.6-2.6); Phosphorus 3.5 mg/dL (2.5-4.90); Total Protein 7.5 g/dL (6.4-8.2)
--- NOTE | 2019-07-26 08:05 | NUR ---
received critical lab result patients BUN is elevated at 110. I will notify plant controller
--- NOTE | 2019-07-26 08:19 | NUR ---
Paged environmental field services technician awaiting call back
--- NOTE | 2019-07-26 08:30 | NUR ---
Physician rounding Dr. Rhodes at bedside. Updated him on patient status and critical lab. No new orders at this time.
[2019-07-26 09:03] VITALS: BP 132/65
[2019-07-26] MEDS: cefTRIAXone 1GM/50ML D5W 50 ML IV SCH (11:07)
[2019-07-26] MEDS: SODIUM CHLORIDE 0.9% 1,000 ML IV SCH (11:08)
--- NOTE | 2019-07-26 11:10 | NUR ---
Physician Rounding Dr. Polanco at bedside. Updated him on patient status and critical lab. No new orders received at this time.
[2019-07-26 12:15] VITALS: BP 141/73
--- NOTE | 2019-07-26 12:35 | NUR ---
WOUND CARE NOTE: Wound care in for daily monitoring of wound vac functioning . Patient continue resting in bed in Rm. 204A. Patient's eyes are closed, answers to questions. Patient's abdominal wound vac dressing is C/D/I and attached to Ulta Vac, functioning well at 125mm Hg continuous as MD ordered . Good seal noted, no leak detected. Very minimal clear drainage noted in Vacutainer not even half of 50ml mason. Will continue to monitor
--- NOTE | 2019-07-26 15:45 | NUR ---
Physician Rounding. Dr. Troncoso at bedside. Updated him on patient status, new orders received. I will follow through with orders.
--- NOTE | 2019-07-26 16:46 | NUR ---
NG TUBE REMOVAL: NG TUBE TO LEFT NARE REMOVED FOLLOWING HOSPITAL POLICY. PATIENT TOLERATED WELL. NO S/S OF ASPIRATIONS NOTED AT THIS TIME. WILL CONTINUE CARE.
[2019-07-26 16:59] VITALS: BP 141/93
--- NOTE | 2019-07-26 17:50 | NUR ---
TPN tapered down to 35ml/ hr. To tapered down at 1950 to 15ml/hr for 2 hrs and then stop and DC. I will follow through.
--- NOTE | 2019-07-26 19:43 | NUR ---
End of shift note Care of patient endorsed to ELLE Jarrett. No s/s of distress noted at this time.
[2019-07-26 20:00] VITALS: BP 141/73
[2019-07-26] MEDS ORDERED: PPN PER PHARMACY IV NR ×8 (20:00)
[2019-07-26 22:00] VITALS: BP 122/75
--- NOTE | 2019-07-26 22:10 | NUR ---
PT HAD LARGE BM IN THE BED. FRANKLIN CARE NEW LINEN AND PT PULLED UP. TOLERATED WELL. WILL CONTINUE TO MONITOR.
[2019-07-27] MEDS: DORZOLAMIDE HCL 2% OPTH(EYE) SOL 10ML EACHEYE SCH ×2 (00:17→21:04)
[2019-07-27] MEDS: LATANOPROST 0.005 % OPTH(EYE) SOL 2.5ML EACHEYE SCH ×2 (00:18→21:04)
[2019-07-27] MEDS: BRIMONIDINE 0.2% OPTH Soln 5ml EACHEYE SCH ×2 (00:18→21:04)
--- NOTE | 2019-07-27 00:51 | NUR ---
PT WANTING FRUIT TO EAT. EXPLAINED TO PATIENT THAT HER DIET IS CLEAR LIQUID UNTIL DR LITTLEJOHN ADVANCES HER. OFFERED PT SOME SUGAR FREE JELLO.PT IS NOT INTERESTED IN ANYTHING EXCEPT SLICED FRUIT. WILL CONTINUE TO MONITOR.
--- NOTE | 2019-07-27 03:00 | NUR ---
PT GIVEN BROTH;UPSET THAT THE RN IS NOT FEEDING IT TO HER. PT POSITIONED IN FOWLERS WITH TABLE AND SPOON AND BROTH POSITIONED SO SHE CAN FEED HERSELF. WILL CONTINUE TO MONITOR.
[2019-07-27 05:00] VITALS: BP_SYST 128; BP_SYST 158; BP_DIAS 68; BP_DIAS 80
--- NOTE | 2019-07-27 07:30 | NUR ---
Opening shift note Assumed care of patient from [facility] RN Luiza. Patient is AOx4, no signs and symptoms of distress, SOB or pain noted at this time. Bed is in lowest locked position, side rails up x2, and call light is within reach. Updated patient on plan of care, patient verbalized understanding. I will continue to monitor Q1hr and PRN.
--- NOTE | 2019-07-27 08:40 | NUR ---
Physician Rounding Dr. Rhodes at bedside. Updated him on patient status, new orders received, I will follow through with orders.
[2019-07-27] MEDS ORDERED: DEXTROSE (50%) 50ML SYRG IV PRN (08:45)
[2019-07-27 08:54] VITALS: BP 125/72
[2019-07-27] MEDS: cefTRIAXone 1GM/50ML D5W 50 ML IV SCH (10:05)
[2019-07-27] MEDS: hydrALAZINE HCL 20 MG/ML VL IV SCH ×4 (12:00→23:56)
--- NOTE | 2019-07-27 12:20 | NUR ---
Physician rounding: Dr. Troncoso at bedside. Updated him on patient status. No new orders received.
[2019-07-27] MEDS: ACCU-CHEK COMFORT CURVE STRIP VI SCH ×4 (12:37→21:31)
[2019-07-27] MEDS: InsuLIN REG 1unit/0.01ml Soln (100units/ml) SC SCH ×4 (12:43→21:30)
[2019-07-27 13:00] VITALS: BP 133/79
[2019-07-27] MEDS: SODIUM CHLORIDE 0.9% 1,000 ML IV SCH (14:42)
[2019-07-27] MEDS ORDERED: SOD CHL 0.45% 1,000 ML IV ONE (16:00)
--- NOTE | 2019-07-27 16:20 | NUR ---
Nutrition Follow-up Wt.: 92.7 kg Pt sleeping with no family by bedside. pt is currently on a full liquid diet with PN support suspended. Pt appetite is good aeb ave 92% PO intake per RN doc. Pt with no noted distress per RN doc. Will continue to closely monitor pertinent labs, PO intake and skin status prn. Will followup in 2-3 days Est Energy needs: 3532-2994 kcals (12-15 kcal/kgBW), Est Protein needs: 58-69 gms/day (1.0-1.1 gm/kgAdjBW) Labs: GLU 128 H, ALB 2.9 L. GI: Pt BM reported on 07/26 per RN doc Skin: Sincere scale 17 mod risk incision at site of sx per RN doc PES: 1) Obesity r/t energy intake in excess of energy needs aeb 217% IBW and BMI of 43.0 kg/m Altered nutrition related lab values r/t current chronic medical condition aeb hyperglycemia, elev RFTs, low GFR, hypoproteinemia, hypoalbuminemia Recommendations: 1) Gradually advance pt to oral CCHO 60g/Renal Specific 60 gm protein diet when medically feasible and as tolerated. 2) Continue current plan of care
[2019-07-27 17:00] VITALS: BP 123/77
--- NOTE | 2019-07-27 17:10 | NUR ---
Cooling measures: Provided 2 ice packs. I will continue to monitor Q1HR and PRN.
[2019-07-27] MEDS: ONDANSETRON HCL 4 MG/2 ML VIAL IV PRN (17:45)
--- NOTE | 2019-07-27 18:04 | NUR ---
ANGELICA DRAIN Emptied 25ml of serous sanguinous fluid.
--- NOTE | 2019-07-27 19:10 | NUR ---
End of shift note: Endorsed care to NOC RN Yesica. No s/s of distress noted at this time.
--- NOTE | 2019-07-27 20:00 | NUR ---
Opening Shift Note Assumed care of patient, awake and alert. No S/S of distress/SOB or pain. Instructed on POC and to call for assist PRN, will continue to monitor for changes Q1hr and PRN.Assisted to the commode with maximum assist and urinated.
[2019-07-27 21:17] VITALS: BP 120/67
[2019-07-28] MEDS: SODIUM CHLORIDE 0.9% 1,000 ML IV SCH ×2 (05:12→21:43)
[2019-07-28 05:35] VITALS: BP 150/81
[2019-07-28] MEDS: hydrALAZINE HCL 20 MG/ML VL IV SCH ×4 (06:16→23:49)
[2019-07-28 06:22] LABS: Basophils # (auto) 0 10 ^3/uL (0-0.2); Basophils % (auto) 0.5 % (0.0-2.0); Eosinophils # (auto) 0.2 10 ^3/uL (0-0.8); Eosinophils % (auto) 2.4 % (0.0-7.0); Hematocrit 31.5 % (36.0-46.0); Hemoglobin 10.8 g/dL (12.2-16.2); Lymphocytes # (auto) 1.7 10 ^3/uL (0.4-5.4); Lymphocytes % (auto) 18.9 % (10.0-50.0); Mean Corpuscular Hemoglobin 33.3 pg (28.0-32.0); Mean Corpuscular Hgb Conc. 34.2 g/dL (32.0-36.0); Mean Corpuscular Volume 97.3 fL (80.0-100.0); Monocytes # (auto) 0.9 10 ^3/uL (0-1.3); Monocytes % (auto) 9.3 % (0.0-12.0); Neutrophils # (auto) 6.3 10 ^3/uL (1.6-8.6); Neutrophils % (auto) 68.9 % (37.0-80.0); Platelet Count (auto) 172 10^3/uL (140-450); Red Blood Cells 3.24 10^6/uL (4.0-5.20); Red Cell Distribution Width 13.2 % (11.8-14.3); White Blood Cell 9.2 10^3/uL (4.4-10.8)
[2019-07-28] MEDS: ACCU-CHEK COMFORT CURVE STRIP VI SCH ×4 (06:22→21:51)
[2019-07-28] MEDS: InsuLIN REG 1unit/0.01ml Soln (100units/ml) SC SCH ×4 (06:22→21:55)
[2019-07-28 06:58] LABS: Potassium 4.1 mmol/L (3.5-5.1)
[2019-07-28 07:04] LABS: BUN/Creatinine Ratio 56.3; Calcium 8.1 mg/dL (8.5-10.1)
--- NOTE | 2019-07-28 07:05 | NUR ---
WOUND CARE NOTE: LATE ENTRY FOR 07/27/19 1226 Wound care in for daily monitoring of wound vac functioning. Patient continue resting in bed in Rm. 204A. Patient is awake, alert and oriented. Dr. Yannick Troncoso arrived at bedside to see patient. MD ordered to Discontinue wound vac, leave Rt abdominal incision open to air if dry and no drainage, cover with dry dressing if there's drainage, noted and carried out. Patient tolerated well. Rt abdominal incision is well approximated, clean and dry. Patient is able to move and turn, Sincere score is 17. No further wound care monitoring needed at this time.
--- NOTE | 2019-07-28 07:31 | NUR ---
Report given to Daiana Wilson, patient is resting no distress, J.p. drain output is 35cc, serous sanguinous.
--- NOTE | 2019-07-28 07:40 | NUR ---
Opening shift note Assumed care from NOC RN Yesica. Patient is AOx4, no signs and symptoms of distress, pain or shortness of breath noted. Bed is in lowest locked position, side rails up x2, and call light is within reach. Updated patient on plan of care and patient verbalized understanding. I will continue to monitor Q1hr and PRN.
[2019-07-28 09:00] VITALS: BP 132/68
[2019-07-28] MEDS: cefTRIAXone 1GM/50ML D5W 50 ML IV SCH (09:26)
[2019-07-28] MEDS ORDERED: diphenhdrAMINE HCL 25 MG CAP PO PRN ×2 (09:45→10:15)
[2019-07-28 13:00] VITALS: BP 172/95
[2019-07-28 17:19] VITALS: BP 115/64
--- NOTE | 2019-07-28 19:19 | NUR ---
close of shift note Endorsed care to NOC RN Prateek. No s/s of distress noted at this time.
--- NOTE | 2019-07-28 19:25 | NUR ---
Opening shift note Assumed care of patient. Patient is awake, alert, and oriented X 4, no signs and symptoms of respiratory distress/SOB. No pain reported. Bed is in lowest locked position, side rails up x2, and call light is within reach. ANGELICA is in R. lower abdomen and drains serosanguineous fluid. Surgical incision open to air. R. arm midline and R. peripheral IV are patent. Alert band on L. arm. Patient is on RA. Updated patient on plan of care and patient verbalized understanding. Will continue to monitor Q1hr and PRN.
--- NOTE | 2019-07-28 19:30 | NUR ---
ANGELICA drain output: 25 mls of sanguinous drainage.
[2019-07-28 20:00] VITALS: BP 136/61
[2019-07-28] MEDS: DORZOLAMIDE HCL 2% OPTH(EYE) SOL 10ML EACHEYE SCH (21:41)
[2019-07-28] MEDS: LATANOPROST 0.005 % OPTH(EYE) SOL 2.5ML EACHEYE SCH (21:42)
[2019-07-28] MEDS: BRIMONIDINE 0.2% OPTH Soln 5ml EACHEYE SCH (21:43)
[2019-07-28 22:00] VITALS: BP 136/61
[2019-07-29] VITALS (7 sets, daily range): BP systolic 124–144; BP diastolic 57–73
[2019-07-29] MEDS: ACCU-CHEK COMFORT CURVE STRIP VI SCH ×4 (06:00→21:22)
[2019-07-29] MEDS: hydrALAZINE HCL 20 MG/ML VL IV SCH ×4 (06:26→23:38)
[2019-07-29] MEDS: InsuLIN REG 1unit/0.01ml Soln (100units/ml) SC SCH ×4 (06:27→21:23)
--- NOTE | 2019-07-29 08:00 | NUR ---
Received pt resting comfortably, call light with in reach, pt denies pain at this time, lt abdomen incision site open to air, rakesh intact, ANGELICA drain to lt upper abdomen, draining serosanguineous fluid.
[2019-07-29] MEDS: cefTRIAXone 1GM/50ML D5W 50 ML IV SCH (08:46)
--- NOTE | 2019-07-29 10:17 | NUR ---
Dr Rhodes at bed side to see pt, doctor discussed the plan of care with pt.
[2019-07-29] MEDS: SODIUM CHLORIDE 0.9% 1,000 ML IV SCH (11:56)
--- NOTE | 2019-07-29 19:28 | NUR ---
Opening shift note Assumed care of patient. Patient is awake, alert, and oriented X 4, resting in bed. No signs and symptoms of respiratory distress/SOB. No pain reported. Bed is in lowest locked position, side rails up x2, and call light is within reach. ANGELICA is in R. lower abdomen and drains serosanguineous fluid. Surgical incision open to air. John are intact. R. upper arm midline and R. peripheral IV are patent. Alert band on L. arm. Patient is on RA. Updated patient on plan of care and patient verbalized understanding. Will continue to monitor Q1hr and PRN.
[2019-07-29] MEDS: DORZOLAMIDE HCL 2% OPTH(EYE) SOL 10ML EACHEYE SCH (21:21)
[2019-07-29] MEDS: LATANOPROST 0.005 % OPTH(EYE) SOL 2.5ML EACHEYE SCH (21:21)
[2019-07-29] MEDS: BRIMONIDINE 0.2% OPTH Soln 5ml EACHEYE SCH (21:22)
[2019-07-30] MEDS: SODIUM CHLORIDE 0.9% 1,000 ML IV SCH ×2 (00:03→06:14)
[2019-07-30 05:00] VITALS: BP 156/57
[2019-07-30] MEDS: ACCU-CHEK COMFORT CURVE STRIP VI SCH ×3 (06:07→17:44)
[2019-07-30] MEDS: hydrALAZINE HCL 20 MG/ML VL IV SCH ×3 (06:07→17:45)
--- NOTE | 2019-07-30 06:19 | NUR ---
IV removal Right hand IV discontinued with sterile technique due to maximum amount days of use. Catheter is fully intact. Pressure dressing applied and site is wrapped with Co-band. Patient tolerated procedure well. Will continue to monitor.
--- NOTE | 2019-07-30 06:38 | NUR ---
ANGELICA drain output 50 ml of sanguinous fluid was obtained from ANGELICA drain.
[2019-07-30] MEDS: InsuLIN REG 1unit/0.01ml Soln (100units/ml) SC SCH ×3 (06:40→17:46)
[2019-07-30 07:13] LABS: Albumin 2.2 g/dL (3.4-5.0); Calcium 7.4 mg/dL (8.5-10.1); Potassium 4.1 mmol/L (3.5-5.1)
[2019-07-30 07:18] LABS: BUN/Creatinine Ratio 25.7; Bilirubin, Total 0.3 mg/dL (0.2-1.0); Phosphorus 1.8 mg/dL (2.5-4.90); Total Protein 5.7 g/dL (6.4-8.2)
[2019-07-30 08:00] VITALS: BP 137/70
[2019-07-30] MEDS: cefTRIAXone 1GM/50ML D5W 50 ML IV SCH (08:27)
[2019-07-30] MEDS ORDERED: SODIUM PHOSPHATES 40 MEQ in D5W 5% 250 ML IV ONE (08:30)
[2019-07-30 09:00] VITALS: BP 137/70
--- NOTE | 2019-07-30 09:20 | NUR ---
Called mid line nurse to inform her that the mid line was leaking and to see if she can come and check the mid line, as per mid line nurse she is unable to come now, nurse recommended for mid line dressing to be changed, and secure the mid line adaptor, and call her if it continuous to leak.
--- NOTE | 2019-07-30 10:05 | NUR ---
Dr. Rhodes at bed side to see pt, doctor discussed the plan of care with pt and informed pt that once the IV phosphorous is done pt can be d/c.
--- NOTE | 2019-07-30 11:16 | NUR ---
Patient refused PT. Patient said she was going home and wanted to save her energy for that. ELLE Arriaga was notified. Addendum: 07/30/19 at 1117 by KRUNAL FORDE PTT Amended: Links added.
--- NOTE | 2019-07-30 11:30 | NUR ---
Called Mid line nurse to informed that the Mid line dressing was changed, the mid line adapter was tightened but the mid line is still leaking as per mid line nurse, she can come and check mid line later.
--- NOTE | 2019-07-30 11:50 | NUR ---
IV insertion New IV access obtained, via clean sterile technique by inserting 22 gauge catheter at rt forearm after one attempt by charge nurse. IV secured properly. No trauma to site. Patient tolerated well.
[2019-07-30 13:00] VITALS: BP 137/73
--- NOTE | 2019-07-30 15:20 | NUR ---
Report given to Oswaldo/RN to continue pt's care.
[2019-07-30 17:00] VITALS: BP_SYST 127; BP_SYST 135; BP_DIAS 49; BP_DIAS 84
--- NOTE | 2019-07-30 17:40 | NUR ---
Assumed care of patient from ELLE Machado.
--- NOTE | 2019-07-30 19:20 | NUR ---
End of shift note Endorsed care to NOC RN Robb. No s/s of distress noted.
[2019-07-30 20:04] VITALS: BP 135/49
--- NOTE | 2019-07-30 21:40 | NUR ---
Discharge instructions given as ordered. Encourage to follow up with PMD as instructed. All questions and concerns addressed. Patient verbalized understanding. Medication reconciliation form completed and copy given to patient. IV removed with catheter intact, pressure dressing applied. Telemetry unit returned to ICU. Patient taken to vehicle via wheelchair with all personal belongings, accompanied by staff and family member. No distress noted at time of departure. Education given to patient regarding jes drain, emptying/decompressing jes drain, cups given to patient. Addendum: 07/30/19 at 2142 by Robb Ventura RN phosphorus iv administration completed.
== END 2019-07-30 21:45 | disposition home or self-care (01) | DRG 853 ==
LOC: EDBD 16:31 → ER 16:31 → TELE 16:32 → DOU IN ICU 21:55 → TELE-WESTW 07-17 14:07 → WEST WING 07-17 20:34 → TELE-CENTR 07-18 19:06 → CENTRAL 07-28 15:58
PROVIDERS: ADMIT Hospitalist; ATTEND Family Medicine
PROC: 0DNW0ZZ Release Peritoneum, Open Approach (ICD-10-PCS; 2019-07-18)
PROC: 0DBU0ZZ Excision of Omentum, Open Approach (ICD-10-PCS; 2019-07-18)
PROC: 0WUF0JZ Supplement Abdominal Wall with Synthetic Substitute, Open Approach (ICD-10-PCS; principal; 2019-07-18 14:55)
DX: A41.9 Sepsis, unspecified organism (principal); N17.0 Acute kidney failure with tubular necrosis; N39.0 Urinary tract infection, site not specified; K43.6 Other and unspecified ventral hernia with obstruction, without gangrene; K55.9 Vascular disorder of intestine, unspecified; N18.5 Chronic kidney disease, stage 5; Z68.41 Body mass index [BMI] 40.0-44.9, adult; E86.0 Dehydration; E83.52 Hypercalcemia; E66.01 Morbid (severe) obesity due to excess calories; K66.0 Peritoneal adhesions (postprocedural) (postinfection); D63.1 Anemia in chronic kidney disease; G47.33 Obstructive sleep apnea (adult) (pediatric); E11.40 Type 2 diabetes mellitus with diabetic neuropathy, unspecified; Z88.5 Allergy status to narcotic agent; Z90.49 Acquired absence of other specified parts of digestive tract; E78.5 Hyperlipidemia, unspecified; E11.65 Type 2 diabetes mellitus with hyperglycemia; E78.00 Pure hypercholesterolemia, unspecified; I12.9 Hypertensive chronic kidney disease with stage 1 through stage 4 chronic kidney disease, or unspecified chronic kidney disease; E11.22 Type 2 diabetes mellitus with diabetic chronic kidney disease; Z79.84 Long term (current) use of oral hypoglycemic drugs; Z85.3 Personal history of malignant neoplasm of breast
CPT/HCPCS: 36415; 71045; 74018; 74176; 74250; 76775; 80048; 80053; 80061; 80307; 81001; 82040; 82105; 82150; 82306; 82570; 82962; 83036; 83605; 83690; 83735; 83970; 84100; 84156; 84300; 84478; 84484; 85025; 85610; 85730; 86850; 86900; 86901; 87040; 88302; 93005; 96361; 96365; 96375; 97110; 97116; 97163; 97530; G0378; J0330; J0690; J0696; J1815; J2405; J2704; J3490; J7060

== ENCOUNTER 2019-09-14 19:10 | Emergency (ER) | payer MEDICARE, OTHER ==
[~2019-09-14] VITALS: Ht 165.1 cm; Wt 81.6 kg
[2019-09-14 22:01] LABS: Basophils # (auto) 0 10 ^3/uL (0-0.2); Basophils % (auto) 0.6 % (0.0-2.0); Eosinophils # (auto) 0.2 10 ^3/uL (0-0.8); Eosinophils % (auto) 2.3 % (0.0-7.0); Hematocrit 33.3 % (36.0-46.0); Hemoglobin 11.2 g/dL (12.2-16.2); Lymphocytes # (auto) 2.2 10 ^3/uL (0.4-5.4); Lymphocytes % (auto) 28.2 % (10.0-50.0); Mean Corpuscular Hemoglobin 32.6 pg (28.0-32.0); Mean Corpuscular Hgb Conc. 33.6 g/dL (32.0-36.0); Mean Corpuscular Volume 96.9 fL (80.0-100.0); Monocytes # (auto) 0.7 10 ^3/uL (0-1.3); Monocytes % (auto) 9.1 % (0.0-12.0); Neutrophils # (auto) 4.7 10 ^3/uL (1.6-8.6); Neutrophils % (auto) 59.8 % (37.0-80.0); Nucleated Red Blood Cells % 0.1 %; Platelet Count (auto) 254 10^3/uL (140-450); Red Blood Cells 3.44 10^6/uL (4.0-5.20); Red Cell Distribution Width 15.4 % (11.8-14.3); White Blood Cell 7.9 10^3/uL (4.4-10.8)
[2019-09-14 22:20] LABS: Chloride 106 mmol/L (98-107); Potassium 4.2 mmol/L (3.5-5.1); Sodium 138 mmol/L (136-145)
[2019-09-14 22:24] LABS: Albumin 3.3 g/dL (3.4-5.0); Anion Gap 9 (5-15); BUN/Creatinine Ratio 22.2; Blood Urea Nitrogen 22 mg/dL (7-18); Calcium 8.9 mg/dL (8.5-10.1); Carbon Dioxide 23 mmol/L (21-32); GFR African American 70 mL/min; GFR Non-African American 58 mL/min; Glucose 128 mg/dL (74-106)
[2019-09-14 22:26] LABS: INR 0.96 (0.9-1.15); Partial Thromboplastin Time 27.5 sec (23.64-32.05)
[2019-09-14 22:29] LABS: Alanine Aminotransferase 23 U/L (13-56); Alkaline Phosphatase 109 U/L (45-117); Aspartate Aminotransferase 19 U/L (15-37); Bilirubin, Total 0.4 mg/dL (0.2-1.0); Total Protein 7.5 g/dL (6.4-8.2)
[2019-09-14 23:11] VITALS: BP 130/79
== END 2019-09-14 23:18 | disposition home or self-care (01) ==
LOC: ER 19:10 → EDBD 19:10 → ER 23:18
DX: E11.9 Type 2 diabetes mellitus without complications (principal); E78.5 Hyperlipidemia, unspecified; I10 Essential (primary) hypertension; Z48.01 Encounter for change or removal of surgical wound dressing; Z90.49 Acquired absence of other specified parts of digestive tract
CPT/HCPCS: 36415; 74176; 80053; 83880; 84484; 85025; 85610; 85730